=== PATIENT | male | born 1940 | race Caucasian/White ===

== ENCOUNTER 2018-06-09 09:52 | Outpatient (CLI) | payer MEDICARE ==
[2018-06-09] MEDS ORDERED: Gadobenate Dimeglumine 529 MG/1 ML (20ML VIAL) ONE (10:51)
--- NOTE | 2018-06-09 13:38 | MRI ---
LUMBAR SPINE MRI WITH AN WITHOUT CONTRAST: 06/09/2018 HISTORY: Lumbar radiculopathy. Prior lumbar spine surgery. TECHNIQUE: Multiplanar, multisequence MR imaging of the lumbar spine is provided with and without contrast. FINDINGS: The sagittal STIR imaging demonstrates no focal area of osseous marrow edema. There is evidence of prior multilevel bilateral laminectomy from the L2-L3 level through the L4-L5 le delia. No significant anterolisthesis or retrolisthesis is noted within the lumbar spine. There is an oval T1 and T2 hyperintense lesion within L5, consistent with a hemangioma. On the basis of five lumbar type vertebral bodies, the conus medullaris terminates at the L1 level. T12-L1: Disk desiccation with mild disk bulge and mild loss of intervertebral disk height. Mild sandy ateral facet hypertrophy with no significant central canal or neural foraminal stenosis. L1-L2: Mild bilateral facet hypertrophy. Intervertebral disk height is normal. No significant cent ral canal or neural foraminal stenosis. L2-L3: Bilateral facet hypertrophy. Bilateral laminectomy changes are noted with no significant ben tral canal stenosis. There is minimal anterolisthesis. There is a small foraminal and post foramina l disk protrusion with lateral osteophyte formation. No significant neural foraminal stenosis on eit her side. L3-L4: Prominent bilateral facet hypertrophy. Posterior bilateral laminectomy change with no signif icant central canal stenosis. There is a foraminal disk protrusion and associated osteophyte formati on on the left with no significant left neural foraminal stenosis. No right neural foraminal stenosi s. L4-L5: Disk space narrowing, disk desiccation, mild disk bulge, and central cannular tear noted. Bi lateral facet hypertrophy, right greater than left. Mild central canal stenosis with mild bilateral neural foraminal stenosis, right greater than left. L5-S1: There is disk space narrowing with disk desiccation and mild disk bulge. There is bilateral facet hypertrophy, left greater than right. Mild left neural foraminal stenosis. No significant ben tral canal or right neural foraminal stenosis. Imaged retroperitoneal structures appear grossly unremarkable on pre and post contrast imaging. Post contrast imaging demonstrates no abnormal enhancement involving the contents of the thecal sac. Melisa ged vertebral bodies and intervertebral disks demonstrate no abnormal enhancement. IMPRESSION: Multilevel postoperative and degenerative change noted within the lumbar spine, as detailed above. POS: [facility]
--- NOTE | 2018-06-09 13:55 | RAD ---
LUMBAR SPINE FOUR VIEWS: 06/09/2018 HISTORY: Pain and radiculopathy. FINDINGS: Incompletely imaged catheter tubing overlies the right upper quadrant. There is right lateral osteop hyte formation at L4-L5. Minimal anterolisthesis noted at L2-L3, measuring up to 2-3 mm. There is anterior osteophyte formati on at L3-L4 and L4-L5. There is multilevel lower lumbar spine facet hypertrophy. Upon flexion, the anterolisthesis at L2-L3 worsened to approximately 6 mm. In addition, flexion imag ing demonstrates anterolisthesis at L3-L4, measuring approximately 4-5 mm, not seen on neutral imagin g. Extension imaging demonstrates no significant anterolisthesis or retrolisthesis. IMPRESSION: Multilevel degenerative change within the lumbar spine, as detailed above. On flexion imaging, there is anterolisthesis at L2-L3 and L3-L4, as above. POS: [facility]
== END 2018-06-09 09:53 | disposition home or self-care (01) ==
LOC: MRI 09:52
PROVIDERS: ATTEND Physician Assistant Surgical
DX: M47.26 Other spondylosis with radiculopathy, lumbar region (principal); M43.16 Spondylolisthesis, lumbar region; M48.8X7 Other specified spondylopathies, lumbosacral region; Z98.890 Other specified postprocedural states
CPT/HCPCS: 72120; 72158; A9579

== ENCOUNTER 2018-06-20 10:54 | Outpatient (CLI) | payer MEDICARE | END 2018-06-20 10:55 | disposition home or self-care (01) | LOC: BICCT 10:54 | PROVIDERS: ATTEND Surgery | DX: G91.9 Hydrocephalus, unspecified (principal) | CPT/HCPCS: 70450 ==

== ENCOUNTER 2018-11-17 15:34 | Outpatient (CLI) | payer MEDICARE ==
--- NOTE | 2018-11-17 18:43 | MRI ---
NONCONTRAST ENHANCED MRI IMAGES LUMBAR SPINE 11/17/18 Comparison made to previous exam from 11/01/16. RADIOGRAPHIC FINDINGS: For the purposes of this dictation, the last freely mobile vertebral body will be designated as the L5 vertebral body. All other vertebral bodies are numbered according to this. T12-L1: Unremarkable. L1-2: Minimal facet hypertrophy is seen. The central canal and neural foramen are patent. L2-3: There is mild anterolisthesis of L2 on L3. This is not significantly changed since the previous comparison exam. Bilateral facet and ligamentum flavum hypertrophy is seen. The patient has had a pr evious L2, L3 laminotomy changes. No significant degree of central stenosis seen. Facet hypertrophy i s significantly decreased. There is central decompression of the L2-3 central stenosis. Mild lateral recess stenosis remains. The neural foramen are patent. L3-4: Disc desiccation is seen. There is bilateral facet hypertrophy seen. The patient has had surgic al changes seen at the posterior aspect of the spinal canal at this level with posterior decompressio n. There is a mild broad based disc bulge seen. Mild neural foraminal narrowing seen. L4-5: Disc desiccation seen. There is a broad based disc bulge with lateral facet and ligamentum flav um hypertrophy. This results in moderate to severe central and lateral recess stenosis. This has slig htly increased since the previous comparison exam as far as the lateral recess stenosis at L4-5. Ther e is moderate right but no significant left sided neural foraminal narrowing seen. Annular fissure se en in the posterior aspect of the annulus fibrosis. L5-S1: There is bilateral facet hypertrophy seen. The central canal is patent. There is moderate bila teral neural foraminal narrowing seen. IMPRESSION: L2 and L3 laminotomy changes. There is increasing L4-5 central and lateral recess stenosis. POS: [facility]
== END 2018-11-17 15:35 | disposition home or self-care (01) ==
LOC: SCSMRI 15:34
PROVIDERS: ATTEND Anesthesiology Pain Medicine
DX: M48.062 Spinal stenosis, lumbar region with neurogenic claudication (principal); Z98.890 Other specified postprocedural states
CPT/HCPCS: 72148

== ENCOUNTER 2019-01-29 00:14 | Outpatient (CLI) | payer MEDICARE ==
[2019-01-29 17:09] LABS: Hemoglobin 14.6 g/dL (14.0-18.0); Mean Corpuscular Hemoglobin 33.1 pg (27.0-31.0); Mean Platelet Volume 7.6 fL (7.4-10.4); Platelet Count 156 thou/uL (130-400); Red Blood Cell (RBC) Count 4.42 mill/uL (4.70-6.10); White Blood Cell (WBC) Count 5.8 thou/uL (4.8-10.8)
[2019-01-29 17:16] LABS: Prothrombin Time 13.5 SEC (12.0-14.7)
[2019-01-29 17:17] LABS: PTT 28.3 SEC (22.9-36.1)
[2019-01-29 17:27] LABS: Anion Gap 9 mmol/L (10-20); BUN (Urea Nitrogen) 13 mg/dL (8.4-25.7); Calc. Creatinine Clearance 0 mL/min (70-130); Calcium 9.2 mg/dL (7.8-10.44); Carbon Dioxide 29 mmol/L (23-31); Chloride 107 mmol/L (98-107); Estimated GFR-MDRD 48; Glucose 103 mg/dL (83-110); Potassium 4.1 mmol/L (3.5-5.1); Sodium 141 mmol/L (136-145)
--- NOTE | 2019-01-29 21:32 | EKG ---
Test Reason : Blood Pressure : / mmHG Vent. Rate : 060 BPM Atrial Rate : 060 BPM P-R Int : 178 ms QRS Dur : 094 ms QT Int : 432 ms P-R-T Axes : 050 081 046 degrees QTc Int : 432 ms Normal sinus rhythm Normal ECG No previous ECGs available Confirmed by TONY ANDREWS, DR. Zavala ([id number]) on 01/29/2019 9:32:30 PM Referred By: NATASHA Confirmed By:DR. Lucas JIMENEZ MD
== END 2019-01-29 00:15 | disposition home or self-care (01) ==
LOC: LABBT 00:14
PROVIDERS: ATTEND Surgery
DX: Z01.818 Encounter for other preprocedural examination (principal); M48.061 Spinal stenosis, lumbar region without neurogenic claudication; M54.16 Radiculopathy, lumbar region
CPT/HCPCS: 80048; 85027; 85610; 85730; 93005; 93010

== ENCOUNTER 2019-09-11 09:28 | Outpatient (CLI) | payer MEDICARE ==
--- NOTE | 2019-09-11 12:09 | CT ---
HEAD CT WITHOUT CONTRAST: Date: 09/11/19 COMPARISON: 10/14/17. HISTORY: History of hydrocephalus, shunt placement. TECHNIQUE: Axial CT imaging at 5 mm intervals from vertex through skull base without contrast. FINDINGS: The imaged paranasal sinuses/mastoid air cells appear well aerated. There is evidence of prior midline occipital craniotomy, unchanged when compared to the prior exam. N o acute osseous abnormality is seen. There is a shunt tube inserted via a posterolateral right parietal approach, distal tip extending int o the region of the body of the right lateral ventricle, stable. This shunt appears to be disconnecte d as before. A second shunt is seen in the anterior right frontal region, distal tip approaching the region of the frontal horn of the right lateral ventricle, unchanged when compared to the prior exam. There is no ventricular enlargement. The configuration of the ventricular system is stable when comp ared to the prior examination. There is subtle isodensity within the subdural space laterally on the right and the frontal region, w hich appears similar when compared to the prior examination and may represent a sequelae of prior hem orrhage or dural thickening. There is no CT evidence of acute intracranial hemorrhage appreciated on this examination. IMPRESSION: No significant interval change as detailed above. POS: [facility]
== END 2019-09-11 09:29 | disposition home or self-care (01) ==
LOC: BICCT 09:28
PROVIDERS: ATTEND Surgery
DX: G91.9 Hydrocephalus, unspecified (principal)
CPT/HCPCS: 70450

== ENCOUNTER 2019-11-11 15:17 | Outpatient (CLI) | payer MEDICARE ==
--- NOTE | 2019-11-11 16:16 | CT ---
CT BRAIN NONCONTRAST: DATE: 11/11/19 at 3:40 p.m. HISTORY: 79-year-old male with history of hydrocephalus presents with headache. COMPARISON: 09/11/19 and 10/14/17. FINDINGS: Mildly enlarged right frontoparietal subdural space with mixed low and intermediate density, is uncha nged. [employer] shunt catheter entrance through right frontal bur hole with distal tip in region of frontal horn of right lateral ventricle. [employer] shunt catheter entering through right lateral calvarium with dist al tip in the region of the superior posterior aspect of body of right lateral ventricle. Regions of gliosis surrounding the catheters in the right frontal lobe and right parietal lobe. The ventricles a re not dilated. The fourth ventricle is small. No acute intra-axial or extra-axial hemorrhage. Suboc cipital craniectomy. Two surgical clips at the craniectomy site to the left of midline. Small old ins ult at posterior aspect of right cerebellar hemisphere. No mass effect of major midline shift. No new calvarial lesion. No interval change overall. IMPRESSION: 1. No interval change overall. 2. No hydrocephalus. 3. Two right sided ventriculoperitoneal shunt catheters. 4. Thin right frontoparietal chronic subdural fluid collection. 5. Status post suboccipital partial craniectomy. 6. Small old insult in right cerebellum. 1. POS: [facility]
== END 2019-11-11 15:18 | disposition home or self-care (01) ==
LOC: BICCT 15:17
PROVIDERS: ATTEND Surgery
DX: G91.9 Hydrocephalus, unspecified (principal); R51 Headache; Z98.890 Other specified postprocedural states
CPT/HCPCS: 70450

== ENCOUNTER 2020-09-27 08:35 | Outpatient (CLI) | payer MEDICARE ==
--- NOTE | 2020-09-27 09:23 | RAD ---
LEFT HIP 2 VIEWS: HISTORY: Hip and back pain. COMPARISON: Radiograph from 2017. FINDINGS: No acute fracture or malalignment. Small acetabular osteophyte formation. Moderate ring osteophytes of the femoral head and neck junction. No significant enthesopathic changes of the greater or lesser trochanter. Mild erosive changes of th e left SI joint. Mild narrowing of the pubic symphysis. IMPRESSION: Mild degenerative disease. No acute osseous abnormality. POS: [facility]
--- NOTE | 2020-09-27 09:25 | RAD ---
LUMBAR SPINE 4 VIEWS: HISTORY: Pain. COMPARISON: None. FINDINGS: Prior laminectomy change from L1-L5. High-grade facet arthrosis L2-S1. In the initial position, there is anterolisthesis of L2 over L3 approximately 3 mm. No significant c hange with flexion or extension. There is moderate narrowing of the L5-S1 disk space. A catheter projects over the right hemithorax a nd right abdomen. No dilated loops of large or small bowel. IMPRESSION: Mild to moderate spondylosis with fixed 2-3 mm L2-3 anterolisthesis without significant translation w ith flexion or extension. POS: [facility]
[2020-09-27] MEDS ORDERED: Magnevist 469MG/ML 20 ML VIAL ONE ×2 (10:35)
--- NOTE | 2020-09-27 12:34 | MRI ---
BRAIN MRI WITH AND WITHOUT CONTRAST: HISTORY: Hydrocephalus. Headache. COMPARISON: 10/25/2016. FINDINGS: Gradient echo sequence: Limited evaluation due to artifact. No obvious intraparenchymal hemorrhage. Extra-axial spaces: There does appear to be diffuse dural prominence on the axial T2 and postcontrast images. Additionally, there are linear hyperintensities involving the right temporal sulci on the FLAIR images which may be artifactual. However, component of subarachnoid blood cannot be excluded. Calvarium: Appropriate T1 marrow signal intensity. Midline brain parenchyma: Unremarkable. Cerebrum:No parenchymal mass, mass effect or midline shift. Brain volume is age-appropriate. Cortical best-white white matter differentiation is preserved. There are scattered T2 and FLAIR white matter hyperintensities likely representing chronic small vessel ischemic change. Ventricles: There is a ventriculoperitoneal shunt catheter via the right frontal approach. Ventricula r system is decompressed. Sinuses and mastoid air cells: Mild mucosal thickening of the paranasal sinuses. Diffusion: Central arterial flow is maintained. Absent restricted diffusion. Postcontrast images:No pathologic enhancement of the brain parenchyma. There is diffuse dural enhance ment. IMPRESSION: 1. Decompressed ventricular system. 2. Diffuse dural enhancement which may be secondary to intracranial hypotension. 3. Questionable subarachnoid blood along the right temporal sulci versus artifact. Findings conveyed to Dr. Gordon 09/27/2020 at 12:56 PM Code CR Transcribed Date/Time: 09/27/2020 12:47 PM
--- NOTE | 2020-09-27 12:42 | MRI ---
MRI LUMBAR SPINE WITH AND WITHOUT CONTRAST: INDICATION: A 79-year-old male with left hip and back pain with a history of surgery and fall. COMPARISON: Prior MRI of the lumbar spine dated 11/17/2018 from [facility]. TECHNIQUE: Multiplanar, multisequence MR images were obtained of the lumbar spine with and without contrast util izing 9 cc of MultiHance. FINDINGS: The conus is seen to terminate at approximately L1. Visualized retroperitoneum and paravertebral sof t tissues are within normal limits. There is postsurgical change of laminectomies from L3 through L5 . There is some vacuum-disk phenomenon at L4-5 intervertebral level. There is multilevel loss of th e normal disk height and signal. No acute fracture is evident. At L5-S1, there is an asymmetric to the left broad-based disk-osteophyte complex and facet hypertroph y inducing mild right and moderate to severe left neural foraminal narrowing which is slightly worse than on the prior examination. There is also some mildly prominent exuberant epidural fibrosis seen at the laminectomy defect site at L5. At L4-5, there is a broad-based disk-osteophyte complex with facet hypertrophy inducing mild to moder ate right and moderate left neural foraminal narrowing that appears slightly worse. At L3-4, there is an asymmetric to the left disk bulge with a superimposed left paracentral to forami nal disk protrusion that is new from the prior exam. This protrusion causes severe narrowing of the left lateral recess with contact and possible impingement of the traversing left L4 nerve root. This is best seen on image 31 of series 9. This is also inducing now moderate central canal narrowing. There is mild to moderate bilateral neural foraminal narrowing from the disk bulge and facet hypertro phy that is slightly more pronounced than on the prior exam. At L2-3, there is a disk-osteophyte complex with facet hypertrophy inducing mild bilateral neural for aminal narrowing which appears similar. At L1-2, there is a mild broad-based bulge without appreciable central canal or neural foraminal narr owing. On the post contrast series, no definite abnormal enhancement is demonstrated. There is some mild ep idural fibrosis seen at the laminectomy defect sites at L3 through L5. IMPRESSION: 1. New left paracentral to foraminal disk protrusion at L3-4 inducing severe narrowing of the left l ateral recess with the potential for impingement of the traversing left L4 nerve root. There is wors ening bilateral neural foraminal narrowing at L3-4. There is also worsening moderate central canal n arrowing at L3-4. 2. Worsening moderate to severe left neural foraminal narrowing at L5-S1. 3. Worsening moderate left and mild to moderate neural foraminal narrowing at L4-5 due to worsening broad-based disk bulge and facet hypertrophy. POS: [facility]
== END 2020-09-27 08:36 | disposition home or self-care (01) ==
LOC: TBSIIMAG 08:35
PROVIDERS: ATTEND Surgery
DX: G91.9 Hydrocephalus, unspecified (principal); M54.5 Low back pain; M79.606 Pain in leg, unspecified; M47.816 Spondylosis without myelopathy or radiculopathy, lumbar region; M43.16 Spondylolisthesis, lumbar region; M17.12 Unilateral primary osteoarthritis, left knee; M51.26 Other intervertebral disc displacement, lumbar region; M48.061 Spinal stenosis, lumbar region without neurogenic claudication; M48.07 Spinal stenosis, lumbosacral region
CPT/HCPCS: 70553; 72110; 72158; 82565; A9579

== ENCOUNTER 2021-04-24 13:47 | Outpatient (CLI) | payer MEDICARE | END 2021-04-24 13:48 | disposition home or self-care (01) | LOC: BICMAMMO 13:47 | PROVIDERS: ATTEND Internal Medicine Endocrinology, Diabetes & Metabolism | DX: N62 Hypertrophy of breast (principal); N64.4 Mastodynia | CPT/HCPCS: 77066; G0279 ==

== ENCOUNTER 2021-04-24 14:49 | Outpatient (CLI) | payer MEDICARE | END 2021-04-24 14:50 | disposition home or self-care (01) | LOC: BICRAD 14:49 | PROVIDERS: ATTEND Family Medicine | DX: M25.551 Pain in right hip (principal) ==

== ENCOUNTER 2021-07-19 12:46 | Outpatient (CLI) | payer MEDICARE | END 2021-07-19 12:47 | disposition home or self-care (01) | LOC: TBSIIMAG 12:46 | PROVIDERS: ATTEND Surgery | DX: M54.5 Low back pain (principal); M47.816 Spondylosis without myelopathy or radiculopathy, lumbar region; M48.061 Spinal stenosis, lumbar region without neurogenic claudication; Z98.890 Other specified postprocedural states | CPT/HCPCS: 72148 ==

== ENCOUNTER 2023-10-04 18:28 | Observation (INO) | payer MEDICARE ==
[2023-10-04 22:03] LABS: #Basophils 0.1 thou/uL (0.0-0.2); #Eosinphils 0.2 thou/uL (0.0-0.7); #Monocytes 0.4 thou/uL (0.11-0.59); #Neutrophils 3.5 thou/uL (1.40-6.50); %Basophils 0.8 % (0.0-1.0); %Eosinophils 2.7 % (0.0-10.0); %Lymphocytes 34.1 % (21.0-51.0); %Monocytes 6.4 % (0.0-10.0); %Neutrophils 55.8 % (42.0-75.0); Hematocrit 37.9 % (42.0-52.0); Hemoglobin 12.6 g/dL (14.0-18.0); Mean Corpuscular HGB CONC 33.2 g/dL (32.0-36.0); Mean Corpuscular Hemoglobin 33.1 pg (27.0-31.0); Mean Corpuscular Volume 99.5 fl (78.0-98.0); Mean Platelet Volume 9.6 fL (7.4-10.4); Platelet Count 145 10x3/uL (130-400); RBC Distribution Width 13.8 % (11.5-14.5); Red Blood Cell (RBC) Count 3.81 mill/uL (4.70-6.10); White Blood Cell (WBC) Count 6.3 10x3/uL (4.8-10.8)
[2023-10-04 22:13] LABS: ALT (SGPT) 22 U/L (8-55); AST (SGOT) 24 U/L (5-34); Albumin 3.7 g/dL (3.4-4.8); Alkaline Phosphatase 87 U/L (40-110); Anion Gap 13 mmol/L (10-20); BUN (Urea Nitrogen) 13 mg/dL (8.4-25.7); Bilirubin, Total 0.5 mg/dL (0.2-1.2); Calc. Creatinine Clearance 0 mL/min (70-130); Calcium 9.2 mg/dL (7.8-10.44); Carbon Dioxide 26 mmol/L (23-31); Chloride 106 mmol/L (98-107); Estimated GFR 42; Globulin 2.8 g/dL (2.4-3.5); Glucose 99 mg/dL (83-110); Protein, Total 6.5 g/dL (5.8-8.1); Sodium 141 mmol/L (136-145)
[2023-10-04 22:18] LABS: Troponin I 0.017 ng/mL (< 0.028)
[2023-10-04 22:19] LABS: PTT 27.2 sec (22.9-36.1); Prothrombin Time 13.4 sec (12.0-14.7)
[2023-10-04] MEDS ORDERED: Lidocaine 1% w/Epinephrine 1:100K 20 ML VIAL ONE (22:50)
[2023-10-04] MEDS ORDERED: Boostrix 0.5 ML (Tdap) VIAL (>/=7 yrs of age) ONE (22:50)
[2023-10-04] MEDS ORDERED: Ondansetron PF 4 MG/2 ML Vial IVP PRN (22:53)
[2023-10-04] MEDS ORDERED: Ipratropium/Albuterol 3 ML NEB NEB PRN (22:53)
[2023-10-04] MEDS ORDERED: Sodium Chloride 0.9% 1,000 ML IV SCH (23:00)
[2023-10-04] MEDS ORDERED: Acetaminophen 500 MG TAB PO SCH (23:59)
[2023-10-05 02:45] VITALS: BMI 30.8
[2023-10-05] MEDS ORDERED: Acetaminophen/Codeine 30-300mg Tablet PO SCH (06:00)
[2023-10-05 06:23] LABS: #Eosinphils 0.2 thou/uL (0.0-0.7); #Monocytes 0.5 thou/uL (0.11-0.59); #Neutrophils 4.3 thou/uL (1.40-6.50); %Basophils 0.4 % (0.0-1.0); %Eosinophils 2.2 % (0.0-10.0); %Lymphocytes 27.8 % (21.0-51.0); %Monocytes 7.1 % (0.0-10.0); %Neutrophils 62.2 % (42.0-75.0); Hematocrit 31.6 % (42.0-52.0); Hemoglobin 10.5 g/dL (14.0-18.0); Mean Corpuscular HGB CONC 33.2 g/dL (32.0-36.0); Mean Corpuscular Hemoglobin 33.3 pg (27.0-31.0); Mean Corpuscular Volume 100.3 fl (78.0-98.0); Mean Platelet Volume 9.4 fL (7.4-10.4); Platelet Count 124 10x3/uL (130-400); RBC Distribution Width 13.8 % (11.5-14.5); Red Blood Cell (RBC) Count 3.15 mill/uL (4.70-6.10); White Blood Cell (WBC) Count 6.9 10x3/uL (4.8-10.8)
[2023-10-05 06:37] LABS: INR-International Normal Ratio 1.1; Prothrombin Time 14.4 sec (12.0-14.7)
[2023-10-05 06:45] LABS: Anion Gap 10 mmol/L (10-20); BUN (Urea Nitrogen) 14 mg/dL (8.4-25.7); Calc. Creatinine Clearance 52 mL/min (70-130); Calcium 8.6 mg/dL (7.8-10.44); Carbon Dioxide 25 mmol/L (23-31); Chloride 109 mmol/L (98-107); Estimated GFR 44; Glucose 129 mg/dL (83-110); Potassium 3.6 mmol/L (3.5-5.1); Sodium 140 mmol/L (136-145)
[2023-10-05 07:45] VITALS: BP 118/67; TEMP 98
[2023-10-05] MEDS ORDERED: Famotidine/PF 20 mg/2ml Vial SLOW IVP SCH (09:00)
[2023-10-05] MEDS ORDERED: Non-Formulary Item 1 EACH (Gabapentin [Neurontin] 600 MG Tablet) PO SCH (15:00)
[2023-10-05] MEDS ORDERED: Gabapentin 300 MG CAP PO SCH (15:00)
[2023-10-05] MEDS ORDERED: Tamsulosin HCl 0.4 MG CAP PO SCH ×2 (21:00)
[2023-10-05] MEDS ORDERED: DULoxetine 60 MG CAP PO SCH (21:00)
[2023-10-06] MEDS ORDERED: Non-Formulary Item 1 EACH (Omeprazole [Omeprazole] 20 MG Capsule.Dr) PO SCH (09:00)
[2023-10-06] MEDS ORDERED: Non-Formulary Item 1 EACH (Aripiprazole [Aripiprazole] 5 MG Tablet) PO SCH (09:00)
[2023-10-06] MEDS ORDERED: Loratadine 10 MG TAB PO SCH (09:00)
[2023-10-06] MEDS ORDERED: Cetirizine HCl 10 MG TAB PO SCH (09:00)
[2023-10-06] MEDS ORDERED: Aripiprazole 10 MG TAB PO SCH (09:00)
== END 2023-10-05 11:05 | disposition home or self-care (01) ==
LOC: ERS 18:28 → SJJU 22:49 → INTOOBSV 22:49
PROVIDERS: ADMIT Student in an Organized Health Care Education/Training Program; ATTEND Student in an Organized Health Care Education/Training Program
DX: S06.5X0A Traumatic subdural hemorrhage without loss of consciousness, initial encounter (principal); E03.9 Hypothyroidism, unspecified; I12.9 Hypertensive chronic kidney disease with stage 1 through stage 4 chronic kidney disease, or unspecified chronic kidney disease; N18.9 Chronic kidney disease, unspecified; N17.9 Acute kidney failure, unspecified; Z79.890 Hormone replacement therapy; Z79.899 Other long term (current) drug therapy; W18.30XA Fall on same level, unspecified, initial encounter; Z23 Encounter for immunization
CPT/HCPCS: 12002; 36415; 70450; 71045; 72125; 80048; 80053; 84484; 85025; 85610; 85730; 90471; 90715; 93005; J7050; S0028

== ENCOUNTER 2023-10-18 15:06 | Emergency (ER) | payer MEDICARE | END 2023-10-18 16:12 | disposition home or self-care (01) | LOC: ERS 15:06 ==